=== PATIENT | female | born 1975 | race Caucasian/White ===

== ENCOUNTER → 2018-02-28 | Outpatient (CLI) | payer OTHER | LOC: BRMIMAGING 13:20 | DX: Z12.31 Encounter for screening mammogram for malignant neoplasm of breast (principal) ==

== ENCOUNTER → 2018-03-09 | Outpatient (CLI) | payer OTHER | LOC: BRMIMAGING 09:10 | DX: N63.21 Unspecified lump in the left breast, upper outer quadrant (principal); R92.2 Inconclusive mammogram | CPT/HCPCS: 76641-PO ==

== ENCOUNTER → 2018-03-20 | Outpatient (CLI) | payer OTHER ==
[~2018-03-20] MED LIST: BUPIVACAINE 0.5% 30 ML SDV ONE; LIDOCAINE 1% 300 MG/30 ML SDV ONE
== END ==
LOC: FIMAGING 07:19
PROC: 0HBU3ZX Excision of Left Breast, Percutaneous Approach, Diagnostic (ICD-10-PCS; principal; 2018-03-20)
DX: D24.2 Benign neoplasm of left breast (principal)

== ENCOUNTER → 2018-06-14 | Outpatient (CLI) | payer OTHER | LOC: BRMIMAGING 09:40 ==

== ENCOUNTER → 2018-09-22 | Outpatient (CLI) | payer OTHER | LOC: BRMIMAGING 09:39 ==